=== PATIENT | male | born 1950 | race Caucasian/White ===

== ENCOUNTER 2021-02-05 12:45 | Emergency (ER) | payer MEDICARE ==
[2021-02-05] MEDS ORDERED: ROBAXIN750 MG PO (15:53)
== END 2021-02-05 16:32 | disposition home or self-care (01) ==
LOC: FER 12:45
DX: S29.012A Strain of muscle and tendon of back wall of thorax, initial encounter (principal); Z87.891 Personal history of nicotine dependence; X50.0XXA Overexertion from strenuous movement or load, initial encounter
CPT/HCPCS: 99283